=== PATIENT | female | born 1935 | race African-American/Black ===

== ENCOUNTER 2017-06-04 07:57 | Observation (INO) | payer OTHER ==
--- NOTE | 2017-06-04 08:12 | ED.PDOC ---
General ED Provider: Dr. LOPEZ BENDER Chief Complaint: Back Pain Stated Complaint: R leg pain; sciatica which I have had before Time Seen by Physician: 08:05 Mode of Arrival: Ambulance Information Source: Patient, EMT Exam Limitations: No limitations Primary Care Provider: GEETA HYDE Nursing and Triage Documentation Reviewed and Agree: Yes Reviewed sepsis parameters & appropriate labs ordered?: Yes (Not applicable) System Inflammatory Response Syndrome: Not Applicable Sepsis Protocol: For patient's 13 years and over: Temp is 96.8 and below OR 101 and greater Pulse >90 BPM Resp >20/minute Acutely Altered Mental Status Are patient's symptoms suggestive of a new infection, such as: -Pneumonia -Skin, Soft Tissue -Endocarditis -UTI -Bone, Joint Infection -Implantable Device -Acute Abdominal Infection -Wound Infection -Meningitis -Blood Stream Catheter Infection -Unknown System Inflammatory Response Syndrome: Not Applicable Review of Systems - Review Of Systems Constitutional: Reports: No symptoms Musculoskeletal: Reports: Back pain (Radiating down to R LE (knee level)) Skin: Reports: No symptoms Neurological: Reports: No symptoms (ROM intact R and L LEs) Endocrine: Reports: No symptoms All Other Systems: Reviewed and Negative Past Medical History - Past Medical History Previously Healthy: Yes Endocrine: Reports: DM 1, DM 2, Hyperthyroid, Dyslipidemia Cardiovascular: Reports: Hypertension, A-Fib Respiratory: Reports: None Hematological: Reports: None Gastrointestinal: Reports: None Genitourinary: Reports: CKD Neuro/Psych: Reports: CVA Musculoskeletal: Reports: Arthritis Cancer: Reports: None Last Menstrual Period: NA Other Pertinent Past Medical History: htn 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 - Surgical History General Surgical History: Reports: Orthopedic, Other - Family History Family History: Reports: Unknown - Social History Smoking Status: Former smoker Hx Substance Use: No Alcohol Screening: None Physical Exam - Physical Exam Appearance: Well-appearing Respiratory: Airway patent, Breath sounds clear, Breath sounds equal Cardiovascular: RRR, Pulses normal GI/: Soft, Nontender Musculoskeletal: Normal strength, ROM intact Skin: Warm, Dry, Normal color Neurological: Sensation intact, Motor intact, Reflexes intact, Alert, Oriented Psychiatric: Affect appropriate, Mood appropriate Physician Notification - Case Discussed Physician Notified: Dr Hyde Time of Notification: 08:20 (Discussed patient hx/tx plan) Physician Notified: Dr Hyde Time of Notification: 12:05 (Intractable LS pain/obs) Critical Care Note - Critical Care Note Total Time (mins): 35 Course - Course Orders, Labs, Meds: Orders Category Date Time Status ADMIT OBSERVATION [PLACE PATIENT OBSERVATION] .TO ADMISSION 06/04/17 12:22 Active MEDSURG (NON-MONITORED BED) Dexamethasone 4 mg/ml Inj [Decadron 4 mg/ml Sdv] MEDS 06/04/17 08:25 Discontinued 12 mg .ROUTE .STK-MED ONE Dexamethasone 4 mg/ml Inj [Decadron 4 mg/ml Sdv] 10 mg MEDS 06/04/17 08:16 Discontinued 0.9 % Sodium Chloride [Sodium Chloride] 50 ml IV ONCE Hydromorphone HCl [Dilaudid 1 mg/ml Syringe] MEDS 06/04/17 09:24 Discontinued 0.5 mg IVP ONCE STA Ketorolac Tromethamine [Toradol] MEDS 06/04/17 08:22 Discontinued 15 mg IVP ONCE STA Ondansetron HCl/Pf [Zofran 4 mg/2 ml] MEDS 06/04/17 09:25 Discontinued 4 mg IVP ONCE STA LUMBAR SPINE, 2 OR 3 VIEWS Stat RADS 06/04/17 10:29 Completed Medications Discontinued Medications Generic Name Dose Route Start Last Admin Trade Name Freq PRN Reason Stop Dose Admin Hydromorphone HCl 0.5 mg 06/04/17 09:24 06/04/17 09:38 Dilaudid 1 Mg/Ml Syringe IVP 06/04/17 09:25 0.5 mg ONCE STA Administration Dexamethasone Sodium Phosphate 52.5 mls @ 75 mls/hr 06/04/17 08:16 06/04/17 08:38 10 mg/ Sodium Chloride IV 06/04/17 08:57 75 mls/hr ONCE STA Administration Ketorolac Tromethamine 15 mg 06/04/17 08:22 06/04/17 08:32 Toradol IVP 06/04/17 08:23 15 mg ONCE STA Administration Ondansetron HCl 4 mg 06/04/17 09:25 06/04/17 09:38 Zofran 4 Mg/2 Ml IVP 06/04/17 09:26 4 mg ONCE STA Administration Vital Signs: Temp Pulse Resp BP Pulse Ox 06/04/17 07:58 97.9 F 84 20 179/95 H 97 Departure - Departure Time of Disposition: 12:42 Disposition: PLACED OBSERVATION Discharge Problem: Lumbar pain with radiation down right leg Condition: Stable Pt referred to PMD for follow-up: Yes (Follow up with primary care on discharge) IPMP verified?: No Allergies/Adverse Reactions: Allergies ampicillin Adverse Reaction (Verified 06/04/17 08:03) furosemide [From Lasix] Adverse Reaction (Verified 06/04/17 11:06) gabapentin [From Neurontin] Adverse Reaction (Verified 06/04/17 11:06) hydrocodone bitartrate [From Vicodin] Adverse Reaction (Verified 06/04/17 08:03) Home Medications: Ambulatory Orders Aspirin [Aspir-Low] 81 mg PO DAILY 06/04/17 Atorvastatin Calcium [Lipitor] 20 mg PO DAILY 06/04/17 Cinacalcet HCl [Sensipar] 30 mg PO DAILY 06/04/17 Furosemide [Lasix] 40 mg PO DAILY 06/04/17 Hydralazine HCl 100 mg PO DAILY 06/04/17 Levothyroxine Sodium [Synthroid] 50 mcg PO QDAC 06/04/17 Nifedipine [Procardia Xl] 60 mg PO BID 06/04/17 Olmesartan Medoxomil [Benicar] 40 mg PO DAILY 06/04/17 Ondansetron HCl [Zofran] 4 mg PO BID PRN 06/04/17 Propafenone HCl 150 mg PO BID 06/04/17 Disposition Discussed With: Patient
[2017-06-04] MEDS ORDERED: DECADRON 4 MG/ML SDV 10 MG in SODIUM CHLORIDE 50 ML IV STA (08:16)
[2017-06-04] MEDS ORDERED: TORADOL IVP STA (08:22)
[2017-06-04] MEDS ORDERED: DECADRON 4 MG/ML SDV ONE (08:25)
[2017-06-04] MEDS ORDERED: DILAUDID 1 MG/ML SYRINGE IVP STA (09:24)
[2017-06-04] MEDS ORDERED: ZOFRAN 4 MG/2 ML IVP STA (09:25)
--- NOTE | 2017-06-04 12:14 | DI ---
EXAM: Three views of the lumbar spine HISTORY: Lower back pain with no injury. COMPARISON: The lumbar spine 07/09/2015 and 02/09/2011 FINDINGS: There is no acute compression fracture with minimal superior endplate deformity at L4. The re are scattered anterior disc osteophytes and moderate facet arthropathy. Lumbosacral junction is i ntact and unchanged. There is atherosclerotic disease of the visualized vessels. IMPRESSION: 1. No acute compression fracture or subluxation. 2. Mild scattered degenerative disease of the lumbosacral spine which has mildly worsened since prio r examination.
[2017-06-04] MEDS ORDERED: SODIUM CHLORIDE 1,000 ML IV SCH (13:00)
[2017-06-04] MEDS ORDERED: CINACALCET HCL 30 MG PO SCH (14:00)
[2017-06-04 15:20] VITALS: BMI 25.4
[2017-06-04] MEDS: NON-FORMULARY MEDICATION (Atorvastatin Calcium [Lipitor] 20 MG) PO SCH (18:44)
[2017-06-04] MEDS: CINACALCET HCL 90 MG PO SCH (18:45)
[2017-06-04] MEDS: FUROSEMIDE 40 MG PO SCH (18:45)
[2017-06-04] MEDS: LEVOTHYROXINE SODIUM 50 MCG PO SCH (18:47)
[2017-06-04] MEDS: NON-FORMULARY MEDICATION (Olmesartan Medoxomil [Benicar] 40 MG) PO SCH (18:48)
[2017-06-04] MEDS: NON-FORMULARY MEDICATION (Hydralazine Hcl [Hydralazine Hcl] 100 MG) PO SCH (18:50)
[2017-06-04] MEDS ORDERED: DILAUDID 1 MG/ML SYRINGE IVP PRN (19:45)
[2017-06-04] MEDS ORDERED: MEDROL DOSEPAK PO SCH (20:00)
[2017-06-04] MEDS: TORADOL IVP SCH (20:30)
[2017-06-04] MEDS: NIFEDIPINE 60 MG PO SCH (20:30)
[2017-06-04] MEDS: CALCIUM ACETATE PO SCH (20:30)
[2017-06-04] MEDS: PROPAFENONE HCL 150 MG PO SCH (20:31)
[2017-06-04 23:00] VITALS: TEMP 97.5
[2017-06-05] MEDS: TORADOL IVP SCH (04:21)
[2017-06-05 06:22] VITALS: BP 163/81
[2017-06-05] MEDS ORDERED: ASPIRIN 81 MG PO SCH (08:00)
[2017-06-05] MEDS: NON-FORMULARY MEDICATION (Atorvastatin Calcium [Lipitor] 20 MG) PO SCH (08:28)
[2017-06-05] MEDS: CALCIUM ACETATE PO SCH (08:28)
[2017-06-05] MEDS: CINACALCET HCL 90 MG PO SCH (08:29)
[2017-06-05] MEDS: PROPAFENONE HCL 150 MG PO SCH (08:29)
[2017-06-05] MEDS: NIFEDIPINE 60 MG PO SCH (08:29)
[2017-06-05] MEDS: LEVOTHYROXINE SODIUM 50 MCG PO SCH (08:29)
[2017-06-05] MEDS: FUROSEMIDE 40 MG PO SCH (08:30)
[2017-06-05] MEDS: NON-FORMULARY MEDICATION (Hydralazine Hcl [Hydralazine Hcl] 100 MG) PO SCH (08:35)
[2017-06-05] MEDS: NON-FORMULARY MEDICATION (Olmesartan Medoxomil [Benicar] 40 MG) PO SCH (08:36)
[2017-06-05] MEDS ORDERED: MEDROL DOSEPAK PO SCH (09:00)
[2017-06-05] MEDS ORDERED: MULTIVITAMIN PO SCH (09:00)
[2017-06-05] MEDS ORDERED: FOLIC ACID PO SCH (09:00)
[2017-06-05] MEDS ORDERED: IRON PO SCH (09:00)
--- NOTE | 2017-06-05 11:54 | PN ---
DATE OF SERVICE: 06/05/17 SUBJECTIVE: The patient was discharged home. She doesn't have any right sciatica pain. On the scale of 1-10 she is saying that it is 1-2. She is up and about in the bathroom walking around without any help. PHYSICAL EXAMINATION: VITAL SIGNS: Temperature 97.5, pulse 76, respiratory rate 18, blood pressure 160 /80 and pulse ox 95%. HEENT: Head normocephalic, atraumatic. Eyes: Extraocular muscles are intact. Pupils are equal, round and reactive to light and accommodation. Ears: No lesions. Nose appeared normal. Throat: No exudate or erythema. NECK: Supple. No JVD, no carotid bruit. No lymphadenopathy or thyromegaly. LUNGS: Clear to auscultation. Percussion note normal. Chest symmetrical. HEART: S1, S2, no S3. No murmurs. No cyanosis or clubbing. No ascites. Pulses: Dorsalis pedis and posterior tibial pulses +1 to +2 both sides. ABDOMEN: Soft. Nontender. Bowel sounds active. No CVA tenderness. No mass felt. EXTREMITIES: No edema. Full range of motion of all extremities, equal. NEUROLOGIC: No focal deficit. Cranial nerves II through XII are grossly intact. No headache, no double vision or headache. SKIN: Not dry. Intact. Turgor - normal. LYMPHATIC: No palpable lymph nodes/no lymphedema. MUSCULOSKELETAL: Normal joints with no swelling. Muscle tone is normal. LABS: Hgb 9.8, hct 29, potassium 5.2. ASSESSMENT: 1. Right sciatica resolved CONDITION: Stable. PLAN: 1. Systolic blood pressure is 163 which is normal for her which fluctuates with hemodialysis. 2. She is scheduled for dialysis. She will discharged home this morning so that she can attend her dialysis session. TIME SPENT: More than 30 minutes. Plan and coordination of the patient's care discussed in the presence of nurse. SANIYA
--- NOTE | 2017-06-05 12:48 | DS ---
DATE OF SERVICE: 06/05/17 FINAL DIAGNOSIS: 1. Right Sciatica DISCHARGE INSTRUCTIONS: Discharge home. Continue home medications as listed on nursing discharge information sheet. An appointment is scheduled with Dr. Leyva/Jo Ann Galicia APRN on June 07 at 1pm. MEDICATIONS AT DISCHARGE: Propafenone 150mg PO twice a day Procardia 60mg PO twice a day Lasix 40mg PO daily Benicar 40mg Po daily Aspirin 81mg PO daily Synthroid 50 mcg PO QDAC Lipitor 20mg PO bedtime Lipitor 20mg PO bedtime Sensipar 90mg PO daily Multivitamin/iron/folic acid one tablet PO daily Calcium one tablet PO three times a day Zofran 4mg PO twice a day PRN Hydralazine 100mg PO daily Medrol Dosepak 4mg PO as directed. NEW PRESCRIPTIONS: Medrol dose pack complete this medication as directed on package. Take with good (steroid) (already dispensed) DIET INSTRUCTIONS: Resume as tolerated ACTIVITY: Resume as tolerated. Use cane at home. Rest. Avoid lifting, pushing, pulling SMOKING: Former smoker DISEASE SPECIFIC EDUCATION: Medication Exercises Rest HOSPITAL COURSE: The patient was treated with Toradol 30mg IV Q 8 hour, steroids pack with 1cc Decadron yesterday. The patient is up and about feeling better. Back exercises discussed with the patient. The patient's cardiovascular status is stable. The patient is going for dialysis. CONDITION: Stable. TIME SPENT: More than 60 minutes. MTDD
--- NOTE | 2017-06-05 12:49 | PN ---
06/04/17: Observation Level 5 06/05/17: D as in discharge MTDD
--- NOTE | 2017-06-05 14:41 | PN ---
DATE OF SERVICE: 06/04/17 SUBJECTIVE: 81 year old black female came to the emergency room with severe sciatica on right side. The patient was given Decadron and IV with Nubain but still her condition didn't improve so she was hospitalized for further treatment and pain control. The patient is on Dialysis so the patient was hospitalized on observation. She will be discharged tomorrow before the dialysis. 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 The patient was seen and examined in the emergency room as well as on the floor. CONDITION: Stable. TIME SPENT: More than 30 minutes. Plan and coordination of the patient's care discussed in the presence of nurse. SANIYA
== END 2017-06-05 11:54 | disposition home or self-care (01) ==
LOC: ED 07:57 → UNDOADMOB 12:25 → MEDSURG A 12:25
PROVIDERS: ADMIT Internal Medicine; ATTEND Internal Medicine
DX: M54.41 Lumbago with sciatica, right side (principal); M47.897 Other spondylosis, lumbosacral region; Z99.2 Dependence on renal dialysis; Z79.899 Other long term (current) drug therapy
CPT/HCPCS: 36415; 80053; 85025; 96374; 96375; 99217; 99220; 99284

== ENCOUNTER 2018-04-10 16:57 | Emergency (ER) ==
[2018-04-10 17:02] VITALS: BP 188/73; TEMP 98.8; BMI 23.7
--- NOTE | 2018-04-10 17:21 | ED.PDOC ---
General ED Provider: Dr. LATIA DYER Chief Complaint: Shoulder Pain/Injury Stated Complaint: LEFT SHOULDER PAIN Time Seen by Physician: 17:00 (PAIN IS REPRODUCEABLE BY SHOULDER PALPATION NO INJURY) Mode of Arrival: Wheelchair Information Source: Patient Exam Limitations: No limitations Primary Care Provider: GEETA HYDE Nursing and Triage Documentation Reviewed and Agree: Yes (ON DIALYSIS DUE IN AM) Does patient meet sepsis criteria?: No System Inflammatory Response Syndrome: Not Applicable Sepsis Protocol: For patient's 13 years and over: Temp is 96.8 and below OR 101 and greater Pulse >90 BPM Resp >20/minute Acutely Altered Mental Status Are patient's symptoms suggestive of a new infection, such as: -Pneumonia -Skin, Soft Tissue -Endocarditis -UTI -Bone, Joint Infection -Implantable Device -Acute Abdominal Infection -Wound Infection -Meningitis -Blood Stream Catheter Infection -Unknown Review of Systems - Review Of Systems Constitutional: Reports: No symptoms Eyes: Reports: No symptoms Ears, Nose, Mouth, Throat: Reports: No symptoms Respiratory: Reports: No symptoms Cardiac: Reports: No symptoms GI: Reports: No symptoms : Reports: No symptoms Musculoskeletal: Reports: Joint pain (SHOULDER PAIN) Skin: Reports: No symptoms Neurological: Reports: No symptoms Endocrine: Reports: No symptoms Hematologic/Lymphatic: Reports: No symptoms All Other Systems: Reviewed and Negative Past Medical History - Past Medical History Previously Healthy: Yes Endocrine: Reports: DM 1, DM 2, Hyperthyroid, Dyslipidemia Cardiovascular: Reports: Hypertension, A-Fib Respiratory: Reports: None Hematological: Reports: None Gastrointestinal: Reports: None Genitourinary: Reports: CKD Neuro/Psych: Reports: CVA Musculoskeletal: Reports: Arthritis Cancer: Reports: None Last Menstrual Period: none Other Pertinent Past Medical History: htn 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 - Surgical History General Surgical History: Reports: Orthopedic, Other - Family History Family History: Reports: Unknown - Social History Smoking Status: Former smoker Hx Substance Use: No Alcohol Screening: None Physical Exam - Physical Exam Appearance: Well-appearing, No pain distress, Well-nourished Eyes: LUCA, EOMI, Conjunctiva clear ENT: Ears normal, Nose normal, Oropharynx normal Respiratory: Airway patent, Breath sounds clear, Breath sounds equal, Respirations nonlabored Cardiovascular: RRR, Pulses normal, No rub, No murmur GI/: Soft, Nontender, No masses, Bowel sounds normal, No Organomegaly Musculoskeletal: Limited ROM (LEFT SHOULDER PAIN IS REPRODUCEABLE BY PALPATION OF THE ACROMION PROCESS SHOULDER LEFT SIDE ) Skin: Warm, Dry, Normal color Neurological: Sensation intact, Motor intact, Reflexes intact, Cranial nerves intact, Alert, Oriented Psychiatric: Affect appropriate, Mood appropriate Critical Care Note - Critical Care Note Total Time (mins): 0 Course - Course Vital Signs: Temp Pulse Resp BP Pulse Ox 04/10/18 16:57 98.8 F 74 18 188/73 H 95 Departure - Departure Time of Disposition: 18:16 Disposition: HOME SELF-CARE Discharge Problem: Shoulder pain Instructions: Arthralgia (ED), Shoulder Sprain (ED), Shoulder Pain (ED) Condition: Good Pt referred to PMD for follow-up: Yes IPMP verified?: No Additional Instructions: Please call your Family Physician as soon as possible to schedule a follow-up appointment. Allergies/Adverse Reactions: Allergies ampicillin Adverse Reaction (Verified 04/10/18 17:03) furosemide [From Lasix] Adverse Reaction (Verified 04/10/18 17:03) gabapentin [From Neurontin] Adverse Reaction (Verified 04/10/18 17:03) hydrocodone bitartrate [From Vicodin] Adverse Reaction (Verified 04/10/18 17:03) Home Medications: Ambulatory Orders Aspirin [Aspir-Low] 81 mg PO DAILY 06/04/17 Atorvastatin Calcium [Lipitor] 20 mg PO BEDTIME 06/04/17 Calcium Acetate 1 tab PO TID 06/04/17 Cinacalcet HCl [Sensipar] 90 mg PO DAILY 06/04/17 Furosemide [Lasix] 40 mg PO DAILY 06/04/17 Hydralazine HCl 100 mg PO DAILY 06/04/17 Levothyroxine Sodium [Synthroid] 50 mcg PO QDAC 06/04/17 Multivitamin/Iron/Folic Acid [Daily Multiple Tablet] 1 tab PO DAILY 06/04/17 Nifedipine [Procardia Xl] 60 mg PO BID 06/04/17 Olmesartan Medoxomil [Benicar] 40 mg PO DAILY 06/04/17 Ondansetron HCl [Zofran] 4 mg PO BID PRN 06/04/17 Propafenone HCl 150 mg PO BID 06/04/17
[2018-04-10] MEDS ORDERED: NORCO 10-325 PO STA (17:22)
--- NOTE | 2018-04-10 18:07 | CT ---
EXAM: CT of the left shoulder without contrast History: Left shoulder pain. Technique: Multiplanar CT images through the left shoulder were obtained without the administration of IV contrast Findings: The visualized left lung is clear. Partially visualized pacer wires. No acute fracture or dislocation. Sclerosis and cystic change involving superior lateral aspect of t he humeral head. Moderate narrowing of the left AC joint with marginal sclerosis and osteophyte form ation. Mild to moderate narrowing of the left glenohumeral joint with marginal sclerosis and osteoph yte formation. Surrounding soft tissues demonstrate no acute findings. Impression: 1. No acute osseous abnormality. 2. Rotator cuff disease. 3. Arthritis
== END 2018-04-10 18:45 | disposition home or self-care (01) ==
LOC: ED 16:57
DX: M25.512 Pain in left shoulder (principal)
CPT/HCPCS: 99282

== ENCOUNTER 2018-06-01 13:45 | Emergency (ER) ==
[2018-06-01 13:51] VITALS: BMI 24.2
--- NOTE | 2018-06-01 14:43 | CT ---
EXAM: CT THORAX HISTORY: Cough and congestion. TECHNIQUE: CT thorax without intravenous contrast. Multiplanar images presented. COMPARISON: None FINDINGS: Cardiomegaly is present. There is moderately severe atherosclerotic disease including coronary arter ies. Pacemaker unit is noted. Limited evaluation of the mediastinum and hilar structures without th e administration of intravenous contrast agent. No gross mediastinal lymphadenopathy. Small bilateral pleural effusions are present. There is pulmonary vascular congestion and mild centr al interstitial edema. Bibasilar consolidations may represent atelectasis. Cannot exclude mild pneu monia. There is no pneumothorax. 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 Nodular appeari ng thyroid gland is noted. IMPRESSION: 1. Cardiomegaly, pulmonary vascular congestion and mild interstitial edema with small pleural effusi ons. 2. Mild basilar consolidations may represent atelectasis or pneumonia. 3. Atherosclerotic disease. 4. Nodular thyroid gland.
[2018-06-01] MEDS: ZOFRAN 4 MG/2 ML IVP STA (15:09)
[2018-06-01] MEDS: DUONEB NEB STA (15:10)
--- NOTE | 2018-06-01 15:14 | ED.PDOC ---
General ED Provider: Dr. JAIR CHINCHILLA Chief Complaint: Hip Pain/Injury Stated Complaint: Fell while getting into bed yesterday. Landed on the left hip yesterday was on the ground for 2 hours. Has not been able to bear weight. She did not go to her scheuduled dialysis today. Son has helped her in and out of bed. Time Seen by Physician: 15:12 Mode of Arrival: Wheelchair Information Source: Patient, Family Exam Limitations: No limitations Primary Care Provider: GEETA HYDE Nursing and Triage Documentation Reviewed and Agree: No Does patient meet sepsis criteria?: Yes If yes, has appropriate treatment been initiated?: No (due to patient being on dialysis. ) System Inflammatory Response Syndrome: Temp 101F or Greater Sepsis Protocol: For patient's 13 years and over: Temp is 96.8 and below OR 101 and greater Pulse >90 BPM Resp >20/minute Acutely Altered Mental Status Are patient's symptoms suggestive of a new infection, such as: -Pneumonia -Skin, Soft Tissue -Endocarditis -UTI -Bone, Joint Infection -Implantable Device -Acute Abdominal Infection -Wound Infection -Meningitis -Blood Stream Catheter Infection -Unknown Musculoskeletal Complaint Exam - Hip/Pelvis Complaint/Exam Location of Pain: Reports: Left Mechanism of Injury: Reports: Trauma (fall out of bed last night ) Onset/Duration: 1 days Symptoms Are: Still present Initial Severity: Severe Current Severity: Severe Location: Reports: Diffuse Character: Reports: Aching, Throbbing Aggravating: Reports: Movement Associated Signs and Symptoms: Reports: Swelling Septic Arthritis Risk Factors: Reports: None Related Surgical History: Reports: None Hip/Pelvis Findings: Absent: Extremity shortened, Swelling, Ecchymosis, Erythema , Warmth, Blisters Tenderness: Present: Left, Pubis NV Bundle Intact Distal to Injury: No Differential Diagnoses: Fracture, Sprain, Strain, Tenosynovitis Review of Systems - Review Of Systems Constitutional: Reports: Fever Eyes: Reports: No symptoms Ears, Nose, Mouth, Throat: Reports: No symptoms Respiratory: Reports: Cough (loss ), Wheezing Cardiac: Reports: No symptoms GI: Reports: No symptoms : Reports: No symptoms Musculoskeletal: Reports: Joint pain (Left hip ) Skin: Reports: No symptoms Neurological: Reports: Anxiety Endocrine: Reports: No symptoms Hematologic/Lymphatic: Reports: No symptoms All Other Systems: Reviewed and Negative Past Medical History - Past Medical History Previously Healthy: Yes Endocrine: Reports: DM 1, DM 2, Hyperthyroid, Dyslipidemia Cardiovascular: Reports: Hypertension, A-Fib Respiratory: Reports: None Hematological: Reports: None Gastrointestinal: Reports: None Genitourinary: Reports: CKD Neuro/Psych: Reports: CVA Musculoskeletal: Reports: Arthritis Cancer: Reports: None Last Menstrual Period: menopause Other Pertinent Past Medical History: htn 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 - Surgical History General Surgical History: Reports: Orthopedic, Other - Family History Family History: Reports: Unknown - Social History Smoking Status: Former smoker Hx Substance Use: No Alcohol Screening: None Physical Exam - Physical Exam Appearance: Ill-appearing Pain Distress: Severe Eyes: LUCA, EOMI, Conjunctiva clear ENT: Nose normal, Oropharynx normal Neck: Supple Respiratory: Airway patent, Breath sounds clear, Breath sounds equal, Respirations nonlabored Cardiovascular: RRR, Pulses normal, Murmur ([place] grade 5/6) GI/: Soft, Nontender, No masses, Bowel sounds normal, No Organomegaly Musculoskeletal: Normal strength, ROM intact, No edema, No calf tenderness Skin: Warm, Dry, Normal color Neurological: Sensation intact, Motor intact, Cranial nerves intact, Alert, Oriented Psychiatric: Anxious Interpretation - Radiology Interpretation Radiology Interpretation By: Radiologist Radiology Results: Positive (possible pneumoina) Exam Interpreted: CT Scan - EKG Interpretation Time of EKG #1: 14:45 Rate: Normal Rhythm: Sinus Ectopy: PVCs (occasional ) [place]: Left ST Segment: Normal Interpretation: old inferior infact, Qt 517 Re-Evaluation - Re-Evaluation Time of Re-Evaluation: 16:02 Status: Improved Vital Signs Stable: Yes Pain Level: much improved on the left hip Lungs: Other (less wheezign) Physician Notification - Case Discussed Physician Notified: Dr Medina Time of Notification: 16:00 (Accepted for transfer to [facility]. ) Critical Care Note - Critical Care Note Total Time (mins): 45 Course - Course Hematology/Chemistry: 06/01/18 14:33 06/01/18 14:33 Orders, Labs, Meds: Lab Review 06/01/18 06/01/18 06/01/18 14:05 14:33 14:33 WBC 7.30 RBC 2.62 L Hgb 7.5 L Hct 23.3 L MCV 88.9 MCH 28.6 MCHC 32.2 RDW Coeff of Srikanth 17.8 H Plt Count 170 Immature Gran % (Auto) 0.3 Neut % (Auto) 76.7 Lymph % (Auto) 12.2 [place] % (Auto) 10.3 H Eos % (Auto) 0.1 Baso % (Auto) 0.4 Immature Gran # (Auto) 0.0 Neut # (Auto) 5.6 Lymph # (Auto) 0.9 [place] # (Auto) 0.8 Eos # (Auto) 0.0 Baso # (Auto) 0.0 Puncture Site O2 Saturation ABG pH ABG pCO2 ABG pO2 ABG HCO3 ABG Total CO2 ABG Base Excess Adam Test FiO2 % Sodium 138.3 Potassium 4.65 Chloride 94.6 L Carbon Dioxide 29.0 Anion Gap 19.35 BUN 44.9 H Creatinine 8.24 H* Estimated GFR (MDRD) 6.00 BUN/Creatinine Ratio 5.44 Glucose 100.2 Lactic Acid Calcium 8.67 Total Bilirubin 0.39 AST 30.3 ALT 11.9 Alkaline Phosphatase 67.4 Total Creatine Kinase CK-MB (CK-2) CK-MB (CK-2) % Troponin I 0.866 H* Total Protein 7.13 Albumin 3.84 Globulin 3.29 Albumin/Globulin Ratio 1.16 Procalcitonin Influ A Molecular Assay Positive by naat H Influ B Molecular Assay Negative by naat Blood Type 06/01/18 06/01/18 06/01/18 14:33 14:33 14:33 WBC RBC Hgb Hct MCV MCH MCHC RDW Coeff of Srikanth Plt Count Immature Gran % (Auto) Neut % (Auto) Lymph % (Auto) [place] % (Auto) Eos % (Auto) Baso % (Auto) Immature Gran # (Auto) Neut # (Auto) Lymph # (Auto) [place] # (Auto) Eos # (Auto) Baso # (Auto) Puncture Site O2 Saturation ABG pH ABG pCO2 ABG pO2 ABG HCO3 ABG Total CO2 ABG Base Excess Adam Test FiO2 % Sodium Potassium Chloride Carbon Dioxide Anion Gap BUN Creatinine Estimated GFR (MDRD) BUN/Creatinine Ratio Glucose Lactic Acid 1.15 Calcium Total Bilirubin AST ALT Alkaline Phosphatase Total Creatine Kinase 187.8 H CK-MB (CK-2) 1.730 CK-MB (CK-2) % 0.9200 Troponin I Total Protein Albumin Globulin Albumin/Globulin Ratio Procalcitonin 2.24 Influ A Molecular Assay Influ B Molecular Assay Blood Type 06/01/18 06/01/18 14:33 14:44 WBC RBC Hgb Hct MCV MCH MCHC RDW Coeff of Srikanth Plt Count Immature Gran % (Auto) Neut % (Auto) Lymph % (Auto) [place] % (Auto) Eos % (Auto) Baso % (Auto) Immature Gran # (Auto) Neut # (Auto) Lymph # (Auto) [place] # (Auto) Eos # (Auto) Baso # (Auto) Puncture Site Rr O2 Saturation 90.0 L ABG pH 7.517 H* ABG pCO2 33.6 L ABG pO2 52.0 L* ABG HCO3 27.2 H ABG Total CO2 28 ABG Base Excess 4 H Adam Test + FiO2 % 21.0 Sodium Potassium Chloride Carbon Dioxide Anion Gap BUN Creatinine Estimated GFR (MDRD) BUN/Creatinine Ratio Glucose Lactic Acid Calcium Total Bilirubin AST ALT Alkaline Phosphatase Total Creatine Kinase CK-MB (CK-2) CK-MB (CK-2) % Troponin I Total Protein Albumin Globulin Albumin/Globulin Ratio Procalcitonin Influ A Molecular Assay Influ B Molecular Assay Blood Type A POSITIVE Orders Category Date Time Status ABG DRAW REQUEST Routine CARDIO 06/01/18 14:44 Completed EKG-(ED ONLY) Stat CARDIO 06/01/18 14:34 Completed NEBULIZER TREATMENT Stat CARDIO 06/01/18 14:44 Completed ED APPLY O2 .ONCE EMERGENCY 06/01/18 14:09 Active ED VITAL SIGNS Q1HR EMERGENCY 06/01/18 14:09 Active ABG Stat LAB 06/01/18 14:44 Completed BLOOD CULTURE (ED ONLY) Stat LAB 06/01/18 14:33 Received CBC W/ AUTO DIFF Stat LAB 06/01/18 14:33 Completed CK [CREATINE KINASE] Stat LAB 06/01/18 14:33 Completed COMPREHENSIVE METABOLIC PANEL Stat LAB 06/01/18 14:33 Completed FLU A/B MOLECULAR Stat LAB 06/01/18 14:05 Completed LACTIC ACID Stat LAB 06/01/18 14:33 Completed PROCALCITONIN Stat LAB 06/01/18 14:33 Completed RAPID STREP SCREEN [MOLECULAR GROUP A STREP] Stat LAB 06/01/18 14:05 Completed TROPONIN I Stat LAB 06/01/18 14:33 Completed URINALYSIS C & S IF INDICATED Stat LAB 06/01/18 14:09 Uncollected Aztreonam [Azactam] MEDS 06/01/18 15:43 Discontinued 1 gm .ROUTE .STK-MED ONE Aztreonam [Azactam] 1 gm MEDS 06/01/18 15:32 Discontinued 0.9 % Sodium Chloride [Sodium Chloride] 50 ml IV ONCE Ipratropium/Albuterol Neb [Duoneb] MEDS 06/01/18 14:44 Discontinued 1 vial NEB ONCE STA Morphine Sulfate [Morphine 2 mg/ml Syringe] MEDS 06/01/18 15:10 Discontinued 2 mg IVP ONCE STA Ondansetron HCl/Pf [Zofran 4 mg/2 ml] MEDS 06/01/18 14:44 Discontinued 4 mg IVP ONCE STA CT ABDOMEN/PELVIS WO CONTRAST Stat RADS 06/01/18 14:[address] CHEST W/O CONTRAST Stat RADS 06/01/18 14:09 Completed Medications Discontinued Medications Generic Name Dose Route Start Last Admin Trade Name Freq PRN Reason Stop Dose Admin Albuterol/Ipratropium 1 vial 06/01/18 14:44 06/01/18 15:10 Duoneb NEB 06/01/18 14:45 1 vial ONCE STA Administration Aztreonam 1 gm/ Sodium 50 mls @ 75 mls/hr 06/01/18 15:32 06/01/18 15:48 Chloride IV 06/01/18 16:11 75 mls/hr ONCE STA Administration Morphine Sulfate 2 mg 06/01/18 15:10 06/01/18 15:21 Morphine 2 Mg/Ml Syringe IVP 06/01/18 15:11 2 mg ONCE STA Administration Ondansetron HCl 4 mg 06/01/18 14:44 06/01/18 15:09 Zofran 4 Mg/2 Ml IVP 06/01/18 14:45 4 mg ONCE STA Administration Vital Signs: Temp Pulse Resp BP Pulse Ox 06/01/18 15:33 181/78 H 06/01/18 15:18 100.8 F H 87 21 212/93 H 100 06/01/18 14:46 83 22 174/85 H 91 L 06/01/18 14:02 91 H 24 202/94 H 88 L 06/01/18 13:45 101.2 F H 87 20 206/97 H 92 L Departure - Departure Time of Disposition: 16:00 Disposition: TSF SHORT-TRM HOSP Discharge Problem: Influenza A Pneumonia Qualifiers: Pneumonia type: due to unspecified organism Laterality: bilateral Lung location : lower lobe of lung Qualified Code(s): J18.1 - Lobar pneumonia, unspecified organism Iron (Fe) deficiency anemia Qualifiers: Iron deficiency anemia type: other iron deficiency Qualified Code(s): D50.8 - Other iron deficiency anemias Condition: Fair Pt referred to PMD for follow-up: Yes IPMP verified?: No Allergies/Adverse Reactions: Allergies ampicillin Adverse Reaction (Verified 06/01/18 13:53) furosemide [From Lasix] Adverse Reaction (Verified 06/01/18 13:53) gabapentin [From Neurontin] Adverse Reaction (Verified 06/01/18 13:53) hydrocodone bitartrate [From Vicodin] Adverse Reaction (Verified 06/01/18 13:53) Home Medications: Ambulatory Orders Aspirin [Aspir-Low] 81 mg PO DAILY 06/04/17 Atorvastatin Calcium [Lipitor] 20 mg PO BEDTIME 06/04/17 Calcium Acetate 1 tab PO TID 06/04/17 Cinacalcet HCl [Sensipar] 90 mg PO DAILY 06/04/17 Furosemide [Lasix] 40 mg PO DAILY 06/04/17 Hydralazine HCl 100 mg PO DAILY 06/04/17 Levothyroxine Sodium [Synthroid] 50 mcg PO QDAC 06/04/17 Multivitamin/Iron/Folic Acid [Daily Multiple Tablet] 1 tab PO DAILY 06/04/17 Nifedipine [Procardia Xl] 60 mg PO BID 06/04/17 Olmesartan Medoxomil [Benicar] 40 mg PO DAILY 06/04/17 Ondansetron HCl [Zofran] 4 mg PO BID PRN 06/04/17 Propafenone HCl 150 mg PO BID 06/04/17
[2018-06-01 15:20] VITALS: TEMP 100.8
[2018-06-01] MEDS: MORPHINE 2 MG/ML SYRINGE IVP STA (15:21)
--- NOTE | 2018-06-01 15:32 | CT ---
EXAM: CT ABDOMEN AND PELVIS HISTORY: Hip pain after fall TECHNIQUE: CT abdomen and pelvis without intravenous contrast. Images were reconstructed using 5 mm section thickness. Reformations were prepared. COMPARISON: 10/29/2014 FINDINGS: Diagnostic limitations exist without including contrast enhanced images. No focal hepatic lesion is identified. Spleen is within normal limits. There appears to be a mass within the gallbladder which could represent a calculus or have other etiology. Similar finding was not seen previously. There is a small amount ascites in the gallbladder fossa extending along the inferior right hepatic lobe. Pancreas is grossly unremarkable. No adrenal mass. The kidneys are relatively atrophic. Multiple v ascular calcifications are seen. There is no aneurysmal caliber of the aorta. No gastric distension. The the appendix is identified and although approaches upper limit normal in diameter has no convincing evidence of acute inflammation. There is scattered colonic diverticulosis . No bowel obstruction is seen. The uterus has at least one soft tissue mass measuring about 2.6 cm consistent with a fibroid. There is low attenuation within the endometrial canal which appears thic kened possibly related to fluid distension or thickened endometrium. Urinary bladder is within agustín l limits. There is no pelvic ascites. There is a fatty umbilical hernia with a transverse neck level proximally 2.5 cm similar to that prev iously seen. Bones reveal severe degenerative disc and facet disease of the spine and transitional v ertebral body anatomy at the lumbosacral junction. The bones appear demineralized. There is no evid ence of an acute fracture. The lung bases reveal small pleural effusions with adjacent consolidation s. Cardiomegaly is noted. There is no pneumoperitoneum. IMPRESSION: 1. No fracture is identified. 2. There is a mass within the gallbladder which may represent a calculus. Small amount of gallbladd er fossa ascites extending along the inferior liver. Correlate clinically for cholecystitis. Consid er right upper quadrant ultrasound. 3. Prominent appendiceal diameter without convincing evidence of inflammation. 4. Colonic diverticulosis. 5. Vascular calcifications. 6. Fibroid uterus. Cannot exclude endometrial thickening or fluid. Consider follow-up pelvic ultra sound. 7. Small pleural effusions with adjacent atelectasis or pneumonia. Cardiomegaly. 8. Fatty umbilical hernia appears stable.
[2018-06-01] MEDS: AZACTAM 1 GM in SODIUM CHLORIDE 50 ML IV STA (15:48)
[2018-06-01] MEDS: AZACTAM ONE (15:59)
[2018-06-01 16:20] VITALS: BP 169/71
== END 2018-06-01 16:48 | disposition short-term general hospital (02) ==
LOC: ED 13:45
DX: M25.552 Pain in left hip (principal); R60.9 Edema, unspecified; R50.9 Fever, unspecified; R05 Cough; R06.2 Wheezing; F41.9 Anxiety disorder, unspecified; J11.1 Influenza due to unidentified influenza virus with other respiratory manifestations; J18.1 Lobar pneumonia, unspecified organism; D50.8 Other iron deficiency anemias
CPT/HCPCS: 36415; 80053; 82550; 82553; 82803; 83605; 84145; 84484; 85025; 87040; 87502; 87651; 93005; 93010; 94640; 96365; 96375; 99284; 99285

== ENCOUNTER 2018-08-19 14:34 | Emergency (ER) ==
[2018-08-19 14:43] VITALS: BP 171/71; TEMP 97.9; BMI 23.3
--- NOTE | 2018-08-19 19:20 | ED.PDOC ---
General ED Provider: Dr. JAIR CHINCHILLA Chief Complaint: Shoulder Pain/Injury Stated Complaint: Miryameinmacie is an 82 year old female who comes to the ER with increased pain to left shoulder and neck area especially when trying to raise her left arm. She reports prior Left rotator cuff injury, believes may be a flare up. Denies any new injury. Time Seen by Physician: 19:20 Mode of Arrival: Wheelchair Information Source: Patient Primary Care Provider: GEETA HYDE Nursing and Triage Documentation Reviewed and Agree: Yes Does patient meet sepsis criteria?: No System Inflammatory Response Syndrome: Not Applicable Sepsis Protocol: For patient's 13 years and over: Temp is 96.8 and below OR 101 and greater Pulse >90 BPM Resp >20/minute Acutely Altered Mental Status Are patient's symptoms suggestive of a new infection, such as: -Pneumonia -Skin, Soft Tissue -Endocarditis -UTI -Bone, Joint Infection -Implantable Device -Acute Abdominal Infection -Wound Infection -Meningitis -Blood Stream Catheter Infection -Unknown Review of Systems - Review Of Systems Constitutional: Reports: No symptoms Eyes: Reports: No symptoms Ears, Nose, Mouth, Throat: Reports: No symptoms Respiratory: Reports: No symptoms Cardiac: Reports: No symptoms GI: Reports: No symptoms : Reports: No symptoms Musculoskeletal: Reports: Joint pain (Limited range of motion to abduction. ) Skin: Reports: No symptoms Neurological: Reports: Anxiety Endocrine: Reports: No symptoms Hematologic/Lymphatic: Reports: No symptoms All Other Systems: Reviewed and Negative Past Medical History - Past Medical History Previously Healthy: Yes Endocrine: Reports: DM 1, DM 2, Hyperthyroid, Dyslipidemia Cardiovascular: Reports: Hypertension, A-Fib Respiratory: Reports: None Hematological: Reports: None Gastrointestinal: Reports: None Genitourinary: Reports: CKD Neuro/Psych: Reports: CVA Musculoskeletal: Reports: Arthritis Cancer: Reports: None Last Menstrual Period: na Other Pertinent Past Medical History: htn 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 - Surgical History General Surgical History: Reports: Orthopedic, Other - Family History Family History: Reports: Unknown - Social History Smoking Status: Former smoker Hx Substance Use: No Alcohol Screening: None - Immunizations Tetanus Shot up to Date: No Physical Exam - Physical Exam Appearance: Well-appearing, Well-nourished Pain Distress: Severe Eyes: EOMI, Conjunctiva clear ENT: Oropharynx normal Neck: Supple Respiratory: Airway patent, Breath sounds clear, Breath sounds equal, Respirations nonlabored Cardiovascular: RRR, Pulses normal, No rub, No murmur GI/: Soft, Nontender, No masses, Bowel sounds normal, No Organomegaly Musculoskeletal: Limited ROM (on the left shoulder ) Skin: Warm, Dry Neurological: Sensation intact Psychiatric: Affect appropriate, Mood appropriate Re-Evaluation - Re-Evaluation Time of Re-Evaluation: 19:30 Status: Improved Pain Level: Pain almost gone Critical Care Note - Critical Care Note Total Time (mins): 0 Course - Course Orders, Labs, Meds: Orders Category Date Time Status Acetaminophen [Tylenol] MEDS 08/19/18 19:25 Discontinued 1,000 mg PO ONCE STA Dexamethasone 4 mg/ml Inj [Decadron 4 mg/ml Sdv] MEDS 08/19/18 19:25 Discontinued 8 mg IM ONCE STA Medications Discontinued Medications Generic Name Dose Route Start Last Admin Trade Name Freq PRN Reason Stop Dose Admin Acetaminophen 1,000 mg 08/19/18 19:25 08/19/18 19:50 Tylenol PO 08/19/18 19:26 1,000 mg ONCE STA Administration Dexamethasone Sodium Phosphate 8 mg 08/19/18 19:25 08/19/18 19:50 Decadron 4 Mg/Ml Sdv IM 08/19/18 19:26 8 mg ONCE STA Administration Vital Signs: Temp Pulse Resp BP Pulse Ox 08/19/18 14:34 97.9 F 70 22 171/71 H 70 L Departure - Departure Time of Disposition: 19:40 Disposition: HOME SELF-CARE Discharge Problem: Shoulder pain Instructions: Shoulder Sprain (ED) Condition: Fair Pt referred to PMD for follow-up: Yes IPMP verified?: No Additional Instructions: Take Tylenol 500mg every 6 hours as needed for pain continue home Tramadol as needed for severe pain Allergies/Adverse Reactions: Allergies ampicillin Adverse Reaction (Verified 08/19/18 17:56) furosemide [From Lasix] Adverse Reaction (Verified 08/19/18 17:56) gabapentin [From Neurontin] Adverse Reaction (Verified 08/19/18 17:56) hydrocodone bitartrate [From Vicodin] Adverse Reaction (Verified 08/19/18 17:56) Home Medications: Ambulatory Orders Aspirin [Aspir-Low] 81 mg PO DAILY 06/04/17 Atorvastatin Calcium [Lipitor] 20 mg PO BEDTIME 06/04/17 Calcium Acetate 1 tab PO TID 06/04/17 Cinacalcet HCl [Sensipar] 90 mg PO DAILY 06/04/17 Hydralazine HCl 100 mg PO DAILY 06/04/17 Levothyroxine Sodium [Synthroid] 50 mcg PO QDAC 06/04/17 Multivitamin/Iron/Folic Acid [Daily Multiple Tablet] 1 tab PO DAILY 06/04/17 Nifedipine [Procardia Xl] 60 mg PO BID 06/04/17 Olmesartan Medoxomil [Benicar] 40 mg PO DAILY 06/04/17 Ondansetron HCl [Zofran] 4 mg PO BID PRN 06/04/17 Propafenone HCl 150 mg PO BID 06/04/17 Tramadol HCl [Ultram] 50 mg PO TID 08/19/18 Disposition Discussed With: Patient, Family
[2018-08-19] MEDS: TYLENOL PO STA (19:50)
[2018-08-19] MEDS: DECADRON 4 MG/ML SDV IM STA (19:50)
== END 2018-08-19 20:19 | disposition home or self-care (01) ==
LOC: ED 14:34
DX: M25.512 Pain in left shoulder (principal); M54.2 Cervicalgia
CPT/HCPCS: 96372; 99282

== ENCOUNTER 2018-08-23 14:08 | Emergency (ER) | payer OTHER ==
[2018-08-23 14:15] VITALS: BP 186/87; TEMP 97.1; BMI 10.9
--- NOTE | 2018-08-23 14:39 | ED.PDOC ---
General ED Provider: Dr. ESPERANZA GARCIA Chief Complaint: Weakness Stated Complaint: 82 y old with an apparent weaknes of left shoulder,left sided vision/apparently due to EOM weakness-peripheral gaze strain/ and very subtle weakness in left facial n medial distribution.Speech is not slurred and suctioning with mouth-lips is normal so are tongue movements. Standing posture is weakened by left hip-weakening to maintain stance.No fasciculations.Sensation to fine needle point touch is dcreased or abolished in left shoulder arm above elbow.-aligned with a loss of motor control in the same region.Ventricular pacemaker senses,fires and captures normally, Time Seen by Physician: 14:25 Mode of Arrival: Walk-In Information Source: Patient, Family Exam Limitations: No limitations Primary Care Provider: GEETA HYDE Nursing and Triage Documentation Reviewed and Agree: Yes Does patient meet sepsis criteria?: No System Inflammatory Response Syndrome: Not Applicable Sepsis Protocol: For patient's 13 years and over: Temp is 96.8 and below OR 101 and greater Pulse >90 BPM Resp >20/minute Acutely Altered Mental Status Are patient's symptoms suggestive of a new infection, such as: -Pneumonia -Skin, Soft Tissue -Endocarditis -UTI -Bone, Joint Infection -Implantable Device -Acute Abdominal Infection -Wound Infection -Meningitis -Blood Stream Catheter Infection -Unknown Neurological Complaint Exam - Weakness Complaint/Exam Last Known Well: ay before dialysis/apparently/. Onset: Sudden Duration: two days Symptoms Are: Still present Timing: Constant Episodes Lasting: Days Initial Severity: Mild Current Severity: Mild Aggravating: Reports: None Alleviating: Reports: Rest, Lying down Associated Signs and Symptoms: Reports: Visual changes Cardiac Risk Factors: Reports: Hypertension, CAD CVA Risk Factors: Reports: Hypertension, CAD JVD Present: No Carotid Bruit Present: No Nystagmus Present: No Gag Reflex Present: Yes Meningeal Signs Positive: No Focal Weakness: Present: LUE, Left facial Gait: Unsteady, Unable Ychapt-no-Onua: Abnormal left Romberg Test Positive: No (not tested due to the condition) Differential Diagnoses: Medication reaction, Metabolic abnormalities Quality Indicator For Non-Traumatic Chest Pain/Syncope: EKG Performed Review of Systems - Review Of Systems Constitutional: Reports: Weakness, Loss of appetite Eyes: Reports: Vision change Ears, Nose, Mouth, Throat: Reports: No symptoms Respiratory: Reports: No symptoms Cardiac: Reports: No symptoms GI: Reports: No symptoms : Reports: No symptoms Musculoskeletal: Reports: Other Skin: Reports: No symptoms Neurological: Reports: Cognitive dysfunction, Unable to move upper ext, Weakness , Other Endocrine: Reports: No symptoms Hematologic/Lymphatic: Reports: No symptoms All Other Systems: Reviewed and Negative Past Medical History - Past Medical History Previously Healthy: Yes Endocrine: Reports: DM 1, DM 2, Hyperthyroid, Dyslipidemia Cardiovascular: Reports: Hypertension, A-Fib Respiratory: Reports: None Hematological: Reports: None Gastrointestinal: Reports: None Genitourinary: Reports: CKD Neuro/Psych: Reports: CVA Musculoskeletal: Reports: Arthritis Cancer: Reports: None Last Menstrual Period: na Other Pertinent Past Medical History: htn 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 - Surgical History General Surgical History: Reports: Orthopedic, Other - Family History Family History: Reports: Unknown - Social History Smoking Status: Former smoker Hx Substance Use: No Alcohol Screening: None - Immunizations Tetanus Shot up to Date: Yes Physical Exam - Physical Exam Appearance: Ill-appearing, No pain distress, Thin Ill-appearing: Mild Pain Distress: None Eyes: LUCA, Conjunctiva clear ENT: Ears normal, Nose normal, Oropharynx normal Neck: Supple Respiratory: Airway patent, Breath sounds clear Cardiovascular: RRR, Pulses normal GI/: Soft, Nontender Musculoskeletal: Normal strength Skin: Dry Psychiatric: Affect appropriate Physician Notification - Case Discussed Physician Notified: Consulted with -nephr,Continue dialysis as scheduled Time of Notification: 16:47 Critical Care Note - Critical Care Note Total Time (mins): 0 Course - Course Hematology/Chemistry: 08/23/18 15:11 08/23/18 15:11 Orders, Labs, Meds: Lab Review 08/23/18 08/23/18 15:11 15:11 WBC 6.03 RBC 3.91 L Hgb 11.2 L Hct 33.7 L MCV 86.2 MCH 28.6 MCHC 33.2 RDW Coeff of Srikanth 15.1 H Plt Count 260 Immature Gran % (Auto) 0.3 Neut % (Auto) 60.6 Lymph % (Auto) 23.7 [place] % (Auto) 11.6 H Eos % (Auto) 2.8 Baso % (Auto) 1.0 Immature Gran # (Auto) 0.0 Neut # (Auto) 3.7 Lymph # (Auto) 1.4 [place] # (Auto) 0.7 Eos # (Auto) 0.2 Baso # (Auto) 0.1 Sodium 136.4 Potassium 4.10 Chloride 97.0 L Carbon Dioxide 26.7 Anion Gap 16.80 BUN 30.8 H Creatinine 7.30 H* Estimated GFR (MDRD) 6.00 BUN/Creatinine Ratio 4.21 Glucose 77.5 Calcium 7.78 L Total Bilirubin 0.48 AST 25.1 ALT 6.9 Alkaline Phosphatase 83.0 Total Protein 7.54 Albumin 4.21 Globulin 3.33 Albumin/Globulin Ratio 1.26 Orders Category Date Time Status EKG-(ED ONLY) Stat CARDIO 08/23/18 14:44 Completed CBC W/ AUTO DIFF Stat LAB 08/23/18 15:11 Completed COMPREHENSIVE METABOLIC PANEL Stat LAB 08/23/18 15:11 Completed URINALYSIS C & S IF INDICATED Stat LAB 08/23/18 14:[address] HEAD W/O CONTRAST Stat RADS 08/23/18 14:40 Completed Vital Signs: Temp Pulse Resp BP Pulse Ox 08/23/18 14:10 97.1 F L 79 16 186/87 H 97 Departure - Departure Time of Disposition: 16:48 Disposition: HOME SELF-CARE Discharge Problem: Dialysis disequilibrium syndrome Instructions: Peripheral Neuropathy (ED) Condition: Fair Pt referred to PMD for follow-up: Yes (follow with nephrology regarding extent of dialysis) IPMP verified?: Yes Additional Instructions: Current dialysis freq 3xweek Allergies/Adverse Reactions: Allergies ampicillin Adverse Reaction (Verified 08/23/18 15:01) furosemide [From Lasix] Adverse Reaction (Verified 08/23/18 15:01) gabapentin [From Neurontin] Adverse Reaction (Verified 08/23/18 15:01) hydrocodone bitartrate [From Vicodin] Adverse Reaction (Verified 08/23/18 15:01) Home Medications: Ambulatory Orders Aspirin [Aspir-Low] 81 mg PO DAILY 06/04/17 Atorvastatin Calcium [Lipitor] 20 mg PO BEDTIME 06/04/17 Calcium Acetate 1 tab PO TID 06/04/17 Cinacalcet HCl [Sensipar] 90 mg PO DAILY 06/04/17 Hydralazine HCl 100 mg PO DAILY 06/04/17 Levothyroxine Sodium [Synthroid] 50 mcg PO QDAC 06/04/17 Multivitamin/Iron/Folic Acid [Daily Multiple Tablet] 1 tab PO DAILY 06/04/17 Nifedipine [Procardia Xl] 60 mg PO BID 06/04/17 Olmesartan Medoxomil [Benicar] 40 mg PO DAILY 06/04/17 Ondansetron HCl [Zofran] 4 mg PO BID PRN 06/04/17 Propafenone HCl 150 mg PO BID 06/04/17 Tramadol HCl [Ultram] 50 mg PO TID 08/19/18 Disposition Discussed With: Patient, Family
--- NOTE | 2018-08-23 15:42 | CT ---
EXAM: CT Head HISTORY: Post dialysis observed left body/facial weakness COMPARISON: None TECHNIQUE: CT head performed without contrast FINDINGS: There is no mass effect, midline shift, or intracranial hemmorhage. Jolly white differenti ation is preserved. There is no extra-axial collection. The ventricles, sulci, and basal cisterns a re patent and symmetric. 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 Cerebral volume lo ss. There is no depressed calvarial fracture. The mastoid air cells are clear. The visualized paran celeste sinuses are clear. There are intracranial atherosclerotic calcifications. IMPRESSION: 1. No acute intracranial abnormality. Consider MRI if there is clinical concern for acute ischemia. 2. 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 Cerebral volume loss.
== END 2018-08-23 18:57 | disposition short-term general hospital (02) ==
LOC: ED 14:08
DX: R53.1 Weakness (principal); H53.9 Unspecified visual disturbance; R63.0 Anorexia; E87.8 Other disorders of electrolyte and fluid balance, not elsewhere classified
CPT/HCPCS: 36415; 80053; 85025; 93005; 93010; 99283; 99284

== ENCOUNTER 2018-08-23 18:58 | Outpatient (CLI) | payer OTHER ==
[2018-08-23 14:15] VITALS: BMI 10.9
== END 2018-08-23 19:18 | disposition short-term general hospital (02) ==
LOC: AMBL 18:58
PROVIDERS: ATTEND Emergency Medicine
DX: R53.1 Weakness (principal); N18.9 Chronic kidney disease, unspecified; Z99.2 Dependence on renal dialysis

== ENCOUNTER 2018-09-21 13:11 | Emergency (ER) | payer OTHER ==
[2018-09-21 13:25] VITALS: BP 137/65; TEMP 97.4; BMI 22.6
--- NOTE | 2018-09-21 14:54 | ED.PDOC ---
General ED Provider: Dr. COLIN ADHIKARI Chief Complaint: Nausea/Vomiting Stated Complaint: Became sick upon arrival home from dialysis. One episode emesis and loose watery diarrhea- dark. Done since this happened earlier this AM Time Seen by Physician: 14:15 Mode of Arrival: Ambulance Information Source: Patient Exam Limitations: No limitations Primary Care Provider: GEETA HYDE Nursing and Triage Documentation Reviewed and Agree: Yes Does patient meet sepsis criteria?: No System Inflammatory Response Syndrome: Not Applicable Sepsis Protocol: For patient's 13 years and over: Temp is 96.8 and below OR 101 and greater Pulse >90 BPM Resp >20/minute Acutely Altered Mental Status Are patient's symptoms suggestive of a new infection, such as: -Pneumonia -Skin, Soft Tissue -Endocarditis -UTI -Bone, Joint Infection -Implantable Device -Acute Abdominal Infection -Wound Infection -Meningitis -Blood Stream Catheter Infection -Unknown GI Complaint Exam - Vomiting/Diarrhea Complaint/Exam Onset/Duration: earlier today Symptoms Are: Resolved Episodes of Vomiting over last 24 Hours: 2 Episodes of Diarrhea Over Last 24 Hours: 1 Initial Severity: Moderate Current Severity: None Character of Vomiting: Reports: Bilious Character of Diarrhea: Reports: Watery (brown ) Aggravating: Reports: None Alleviating: Reports: NPO, Lying still Associated Signs and Symptoms: Reports: Abdominal pain, Cramping. Denies: Dizziness, Light-headedness, Melena, Hematemesis, Fever Related History: Denies: Similar episode, Recent antibiotics Non-GI Risk Factors: Reports: None Surgical Obstruction Risk Factors: Reports: None Related Surgical History: Reports: None Abdominal Findings: Present: None Kussmaul Respirations Present: No Differential Diagnoses: Gastritis, Viral Gastroenteritis Review of Systems - Review Of Systems Constitutional: Reports: No symptoms Eyes: Reports: No symptoms Ears, Nose, Mouth, Throat: Reports: No symptoms Respiratory: Reports: No symptoms Cardiac: Reports: No symptoms GI: Reports: No symptoms, Diarrhea, Nausea, Vomiting : Reports: No symptoms, Other (ckd /dialysis) Musculoskeletal: Reports: No symptoms Skin: Reports: No symptoms Neurological: Reports: No symptoms Endocrine: Reports: No symptoms Hematologic/Lymphatic: Reports: No symptoms All Other Systems: Reviewed and Negative Past Medical History - Past Medical History Previously Healthy: Yes Endocrine: Reports: DM 1, DM 2, Hyperthyroid, Dyslipidemia Cardiovascular: Reports: Hypertension, A-Fib Respiratory: Reports: None Hematological: Reports: None Gastrointestinal: Reports: None Genitourinary: Reports: CKD Neuro/Psych: Reports: CVA Musculoskeletal: Reports: Arthritis Cancer: Reports: None Last Menstrual Period: unknown Other Pertinent Past Medical History: htn 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 - Surgical History General Surgical History: Reports: Orthopedic, Other - Family History Family History: Reports: Unknown - Social History Smoking Status: Former smoker Hx Substance Use: No Alcohol Screening: None Physical Exam - Physical Exam Appearance: Ill-appearing, Thin Ill-appearing: Mild Pain Distress: None Eyes: LUCA, EOMI, Conjunctiva clear ENT: Ears normal, Nose normal, Oropharynx normal Neck: Supple Respiratory: Airway patent, Breath sounds clear, Breath sounds equal, Respirations nonlabored Cardiovascular: RRR, Pulses normal, No rub, No murmur GI/: Soft, Nontender, No masses, Bowel sounds normal, No Organomegaly Musculoskeletal: Normal strength, ROM intact, No edema, No calf tenderness Skin: Warm, Dry, Normal color Neurological: Sensation intact, Motor intact, Reflexes intact, Cranial nerves intact, Alert, Oriented Critical Care Note - Critical Care Note Total Time (mins): 0 Course - Course Hematology/Chemistry: 09/21/18 15:10 09/21/18 15:10 Orders, Labs, Meds: Lab Review 09/21/18 09/21/18 15:10 15:10 WBC 10.12 RBC 3.42 L Hgb 9.9 L Hct 30.0 L MCV 87.7 MCH 28.9 MCHC 33.0 RDW Coeff of Srikanth 14.8 Plt Count 192 Immature Gran % (Auto) 0.3 Neut % (Auto) 81.4 Lymph % (Auto) 10.7 [place] % (Auto) 6.8 Eos % (Auto) 0.5 Baso % (Auto) 0.3 Immature Gran # (Auto) 0.0 Neut # (Auto) 8.2 H Lymph # (Auto) 1.1 [place] # (Auto) 0.7 Eos # (Auto) 0.1 Baso # (Auto) 0.0 Sodium 135.0 Potassium 3.61 Chloride 91.3 L Carbon Dioxide 34.9 H Anion Gap 12.41 BUN 31.6 H Creatinine 3.18 H Estimated GFR (MDRD) 17.00 BUN/Creatinine Ratio 9.93 Glucose 130.8 H Calcium 8.20 L Total Bilirubin 0.43 AST 31.4 ALT 14.7 Alkaline Phosphatase 80.5 Troponin I 0.047 Total Protein 7.00 Albumin 3.81 Globulin 3.19 Albumin/Globulin Ratio 1.19 Orders Category Date Time Status EKG-(ED ONLY) Stat CARDIO 09/21/18 14:53 Completed CBC W/ AUTO DIFF Stat LAB 09/21/18 15:10 Completed CMP [COMPREHENSIVE METABOLIC PANEL] Stat LAB 09/21/18 15:10 Completed TROPONIN I Stat LAB 09/21/18 15:10 Completed Vital Signs: Temp Pulse Resp BP Pulse Ox 09/21/18 13:14 97.4 F L 76 20 137/65 97 Departure - Departure Time of Disposition: 16:15 Disposition: HOME SELF-CARE Discharge Problem: Vomiting and diarrhea, CKD (chronic kidney disease) stage V requiring chronic dialysis Instructions: Gastroenteritis (ED) Condition: Good Pt referred to PMD for follow-up: Yes IPMP verified?: No Additional Instructions: Remain on diet as tolerated Remain well hydrated See PCP in office next week Allergies/Adverse Reactions: Allergies ampicillin Adverse Reaction (Verified 09/21/18 13:25) furosemide [From Lasix] Adverse Reaction (Verified 09/21/18 13:25) gabapentin [From Neurontin] Adverse Reaction (Verified 09/21/18 13:25) hydrocodone bitartrate [From Vicodin] Adverse Reaction (Verified 09/21/18 13:25) Home Medications: Ambulatory Orders Aspirin [Aspir-Low] 81 mg PO DAILY 06/04/17 Atorvastatin Calcium [Lipitor] 20 mg PO BEDTIME 06/04/17 Calcium Acetate 1 tab PO TID 06/04/17 Cinacalcet HCl [Sensipar] 90 mg PO DAILY 06/04/17 Hydralazine HCl 100 mg PO DAILY 06/04/17 Levothyroxine Sodium [Synthroid] 50 mcg PO QDAC 06/04/17 Multivitamin/Iron/Folic Acid [Daily Multiple Tablet] 1 tab PO DAILY 06/04/17 Nifedipine [Procardia Xl] 60 mg PO BID 06/04/17 Olmesartan Medoxomil [Benicar] 40 mg PO DAILY 06/04/17 Ondansetron HCl [Zofran] 4 mg PO BID PRN 06/04/17 Propafenone HCl 150 mg PO BID 06/04/17 Tramadol HCl [Ultram] 50 mg PO TID 05/13/19 Disposition Discussed With: Patient, Family
== END 2018-09-21 17:05 | disposition home or self-care (01) ==
LOC: ED 13:11
DX: R11.2 Nausea with vomiting, unspecified (principal); R19.7 Diarrhea, unspecified; N18.5 Chronic kidney disease, stage 5; Z99.2 Dependence on renal dialysis; Z79.899 Other long term (current) drug therapy; R10.9 Unspecified abdominal pain; E11.9 Type 2 diabetes mellitus without complications; E78.5 Hyperlipidemia, unspecified; E05.90 Thyrotoxicosis, unspecified without thyrotoxic crisis or storm; Z86.73 Personal history of transient ischemic attack (TIA), and cerebral infarction without residual deficits
CPT/HCPCS: 36415; 80053; 84484; 85025; 93005; 93010; 99283

== ENCOUNTER 2018-09-26 18:05 | Emergency (ER) | payer OTHER ==
[2018-09-26 18:11] VITALS: BMI 22.1
[2018-09-26] MEDS ORDERED: ZOFRAN ODT PO STA (19:25)
--- NOTE | 2018-09-26 19:43 | ED.PDOC ---
General ED Provider: Dr. JAIR CHINCHILLA Chief Complaint: Weakness Stated Complaint: Patient is an 82 year old female who states that she had dialysis two days ago and today and on her way home after dialysis she vomited brown emesis. Ambulace was callded due to lower blood pressure in the 90s. family states that there was no blood or coffee ground in her vomit. She denies any complaint at this time except mild Nausea. Family states that she had similar episode 2 days ago. Time Seen by Physician: 19:38 Mode of Arrival: Ambulance Information Source: Patient Exam Limitations: No limitations Primary Care Provider: GEETA HYDE Nursing and Triage Documentation Reviewed and Agree: Yes Does patient meet sepsis criteria?: No System Inflammatory Response Syndrome: Not Applicable Sepsis Protocol: For patient's 13 years and over: Temp is 96.8 and below OR 101 and greater Pulse >90 BPM Resp >20/minute Acutely Altered Mental Status Are patient's symptoms suggestive of a new infection, such as: -Pneumonia -Skin, Soft Tissue -Endocarditis -UTI -Bone, Joint Infection -Implantable Device -Acute Abdominal Infection -Wound Infection -Meningitis -Blood Stream Catheter Infection -Unknown Miscellaneous Complaint Exam - Complex/Multi-System Complaint/Exam Onset/Duration: 1 day Symptoms Are: Resolved Associated Signs and Symptoms: Reports: Weakness, Nausea, Vomiting Respiratory Distress: None JVD Present: No Tachypnea Present: No Stridor Present: No Abdominal Findings: Present: Normal findings Glascow Coma Scale (see protocol): 15 Focal Weakness: Present: None Focal Sensory Loss: Present: None Gait: Normal Gag Reflex Present: Yes Skin Findings: Present: Normal findings Rectal Exam: Present: Heme positive. Absent: External hemorrhoids, Swelling Differential Diagnosis: Other (upper gi Bleed ) Quality Indicator For Non-Traumatic Chest Pain/Syncope: EKG Performed Review of Systems - Review Of Systems Constitutional: Reports: Weakness Eyes: Reports: No symptoms Ears, Nose, Mouth, Throat: Reports: No symptoms Respiratory: Reports: No symptoms GI: Reports: Nausea, Vomiting (brown emesis ) : Reports: No symptoms Musculoskeletal: Reports: No symptoms Skin: Reports: No symptoms Neurological: Reports: No symptoms Endocrine: Reports: No symptoms, Excessive sweating All Other Systems: Reviewed and Negative Past Medical History - Past Medical History Previously Healthy: Yes Endocrine: Reports: DM 1, DM 2, Hyperthyroid, Dyslipidemia Cardiovascular: Reports: Hypertension, A-Fib Respiratory: Reports: None Hematological: Reports: None Gastrointestinal: Reports: None Genitourinary: Reports: CKD Neuro/Psych: Reports: CVA Musculoskeletal: Reports: Arthritis Cancer: Reports: None Last Menstrual Period: n/a Other Pertinent Past Medical History: htn 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 - Surgical History General Surgical History: Reports: Pacemaker, Orthopedic, Other - Family History Family History: Reports: Unknown - Social History Smoking Status: Former smoker Hx Substance Use: No Alcohol Screening: None Physical Exam - Physical Exam Appearance: Ill-appearing Ill-appearing: Moderate Pain Distress: None Eyes: Conjunctiva pale Neck: Supple Respiratory: Airway patent, Breath sounds clear, Breath sounds equal, Respirations nonlabored Cardiovascular: RRR, Pulses normal, No rub, No murmur GI/: Soft, Nontender Musculoskeletal: Normal strength, ROM intact, No edema, No calf tenderness Skin: Warm, Dry Neurological: Alert, Oriented Psychiatric: Anxious Interpretation - Radiology Interpretation Radiology Interpretation By: ED Physician Radiology Results: Negative Exam Interpreted: Portable CXR - EKG Interpretation Time of EKG #1: 19:50 Rate: Normal (70) Rhythm: Other (paced) [place]: Left Interpretation: Dual chamber pacemaker Re-Evaluation - Re-Evaluation Time of Re-Evaluation: 21:37 Status: Improved Vital Signs Stable: Yes (131/50) Physician Notification - Case Discussed Physician Notified: Dr Rucker Time of Notification: 21:33 (Accepted for consult ) Physician Notified: Dr Norris Time of Notification: 21:43 (Accepted for Transfer then called back and Demanded a central line to be placed. Discussed risks of central line to patient and family and they declined even thought at this time she has a 22 gauge IV on the left forarm. ) Consult With: discussed with ER physician at [facility] who has accepted patient for Transf Critical Care Note - Critical Care Note Total Time (mins): 30 Comments: Amy Hospitalist Dr. Norris refused to accept patient for transfer demanding a central line even after patient has peripheral line and refused to consent for central line due to risk of infection Pneumothroax Dr. Wang accepted patient to [facility] ER and requested if we can get another 18 Gu peripheral line SOLAR THER[employer] TECHNICIAN at [facility] Dr Shavon Montague called the hospital at my request and I explained the discussion back and forth as noted on Nursing chart. Told her that because of refusal by Dr Norris I initiated call to [facility] and she has been accepted. Prior to her calling back. Course - Course Hematology/Chemistry: 09/26/18 20:05 09/26/18 20:05 Orders, Labs, Meds: Lab Review 09/26/18 09/26/18 09/26/18 20:05 20:05 20:05 WBC 6.94 RBC 2.45 L Hgb 7.1 L Hct 22.0 L MCV 89.8 MCH 29.0 MCHC 32.3 RDW Coeff of Srikanth 15.7 H Plt Count 178 Immature Gran % (Auto) 0.6 Neut % (Auto) 65.0 Lymph % (Auto) 21.0 Hopkins % (Auto) 11.1 H Eos % (Auto) 1.6 Baso % (Auto) 0.7 Immature Gran # (Auto) 0.0 Neut # (Auto) 4.5 Lymph # (Auto) 1.5 Hopkins # (Auto) 0.8 Eos # (Auto) 0.1 Baso # (Auto) 0.1 PT INR Sodium 134.9 Potassium 3.73 Chloride 93.5 L Carbon Dioxide 35.0 H Anion Gap 10.13 BUN 26.0 H Creatinine 3.14 H Estimated GFR (MDRD) 17.00 BUN/Creatinine Ratio 8.28 Glucose 113.7 H Lactic Acid Calcium 8.15 L Total Bilirubin 0.26 AST 25.0 ALT 13.3 Alkaline Phosphatase 65.9 Troponin I 0.040 Total Protein 6.32 Albumin 3.52 Globulin 2.80 Albumin/Globulin Ratio 1.25 Amylase Lipase Procalcitonin 0.74 Stl Occult Blood (IFOB) Stool Occult Blood #2 Stool Occult Blood #3 09/26/18 09/26/18 09/26/18 20:05 20:05 20:05 WBC RBC Hgb Hct MCV MCH MCHC RDW Coeff of Srikanth Plt Count Immature Gran % (Auto) Neut % (Auto) Lymph % (Auto) Hopkins % (Auto) Eos % (Auto) Baso % (Auto) Immature Gran # (Auto) Neut # (Auto) Lymph # (Auto) Hopkins # (Auto) Eos # (Auto) Baso # (Auto) PT 10.4 INR 1.04 Sodium Potassium Chloride Carbon Dioxide Anion Gap BUN Creatinine Estimated GFR (MDRD) BUN/Creatinine Ratio Glucose Lactic Acid 0.76 Calcium Total Bilirubin AST ALT Alkaline Phosphatase Troponin I Total Protein Albumin Globulin Albumin/Globulin Ratio Amylase 210.7 H Lipase 252.5 Procalcitonin Stl Occult Blood (IFOB) Stool Occult Blood #2 Stool Occult Blood #3 09/26/18 21:03 WBC RBC Hgb Hct MCV MCH MCHC RDW Coeff of Srikanth Plt Count Immature Gran % (Auto) Neut % (Auto) Lymph % (Auto) Hopkins % (Auto) Eos % (Auto) Baso % (Auto) Immature Gran # (Auto) Neut # (Auto) Lymph # (Auto) Hopkins # (Auto) Eos # (Auto) Baso # (Auto) PT INR Sodium Potassium Chloride Carbon Dioxide Anion Gap BUN Creatinine Estimated GFR (MDRD) BUN/Creatinine Ratio Glucose Lactic Acid Calcium Total Bilirubin AST ALT Alkaline Phosphatase Troponin I Total Protein Albumin Globulin Albumin/Globulin Ratio Amylase Lipase Procalcitonin Stl Occult Blood (IFOB) Positive Stool Occult Blood #2 No specimen received Stool Occult Blood #3 No specimen received Orders Category Date Time Status EKG-(ED ONLY) Stat CARDIO 09/26/18 19:33 Completed IV [ED IV/MEDIPORT/POWERPORT] .ONCE EMERGENCY 09/26/18 22:40 Active AMYLASE Stat LAB 09/26/18 20:05 Completed BLOOD CULTURE (ED ONLY) Stat LAB 09/26/18 20:05 Received CBC W/ AUTO DIFF Stat LAB 09/26/18 20:05 Completed COMPREHENSIVE METABOLIC PANEL Stat LAB 09/26/18 20:05 Completed HEMOCCULT [OCCULT BLOOD, STOOL] Stat LAB 09/26/18 21:03 Completed LACTIC ACID Stat LAB 09/26/18 20:05 Completed LIPASE Stat LAB 09/26/18 20:05 Completed PROCALCITONIN Stat LAB 09/26/18 20:05 Completed PT WITH INR Stat LAB 09/26/18 20:05 Completed TROPONIN I Stat LAB 09/26/18 20:05 Completed 0.9 % Sodium Chloride [Saline Flush] MEDS 09/26/18 22:40 Discontinued 1 syr IVF PRN PRN Ondansetron [Zofran Odt] MEDS 09/26/18 19:25 Discontinued 4 mg PO ONCE STA Pantoprazole Sodium [Protonix IV] MEDS 09/26/18 21:15 Discontinued 40 mg IVP ONCE STA CHEST, 1V AP ONLY Stat RADS 09/26/18 19:33 Completed Medications Discontinued Medications Generic Name Dose Route Start Last Admin Trade Name Anthonyq PRN Reason Stop Dose Admin Ondansetron HCl 4 mg 09/26/18 19:25 09/26/18 19:30 Zofran Odt PO 09/26/18 19:26 4 mg ONCE STA Administration Pantoprazole Sodium 40 mg 09/26/18 21:15 09/26/18 22:35 Protonix Iv IVP 09/26/18 21:16 40 mg ONCE STA Administration Sodium Chloride 1 syr 09/26/18 22:40 Saline Flush IVF PRN PRN To flush IV Vital Signs: Temp Pulse Resp BP Pulse Ox 09/27/18 00:25 97.8 F 70 24 152/67 H 98 09/26/18 23:01 131/50 L 09/26/18 19:40 150/59 H 99 09/26/18 18:07 99.0 F 77 20 126/25 L 100 Departure - Departure Time of Disposition: 23:57 Disposition: TSF SHORT-TRM HOSP Discharge Problem: Upper GI bleeding Anemia Qualifiers: Anemia type: iron deficiency Iron deficiency anemia type: other iron deficiency Qualified Code(s): D50.8 - Other iron deficiency anemias Condition: Fair Pt referred to PMD for follow-up: Yes IPMP verified?: No Allergies/Adverse Reactions: Allergies ampicillin Adverse Reaction (Verified 09/26/18 18:12) furosemide [From Lasix] Adverse Reaction (Verified 09/26/18 18:12) gabapentin [From Neurontin] Adverse Reaction (Verified 09/26/18 18:12) hydrocodone bitartrate [From Vicodin] Adverse Reaction (Verified 09/26/18 18:12) Home Medications: Ambulatory Orders Aspirin [Aspir-Low] 81 mg PO DAILY 06/04/17 Atorvastatin Calcium [Lipitor] 20 mg PO BEDTIME 06/04/17 Levothyroxine Sodium [Synthroid] 50 mcg PO QDAC 06/04/17 Multivitamin/Iron/Folic Acid [Daily Multiple Tablet] 1 tab PO DAILY 06/04/17 Olmesartan Medoxomil [Benicar] 40 mg PO DAILY 06/04/17 Ondansetron HCl [Zofran] 4 mg PO BID PRN 06/04/17 Propafenone HCl 150 mg PO BID 06/04/17 Tramadol HCl [Ultram] 50 mg PO TID PRN 08/19/18 Pt. Stabilized Within Hospital's Capabilities/Transferred To: [facility]. Transfer Form Completed: Yes Disposition Discussed With: Patient, Family
[2018-09-26] MEDS ORDERED: PROTONIX IV IVP STA (21:15)
--- NOTE | 2018-09-26 21:18 | DI ---
Exam: Chest one-view History: Weakness, nausea vomiting FINDINGS: Cardiac silhouette is enlarged. Pulmonary vasculature is normal. The right approach dial ysis catheter with its tip at the upper right atrium level. Left approach pacemaker. The pulmonary vasculature is normal. No lung infiltrates. No acute chest wall abnormality. Impression: No acute cardiopulmonary disease.
[2018-09-27 00:38] VITALS: TEMP 97.8
[2018-09-27 06:55] VITALS: BP 152/67
== END 2018-09-27 00:45 | disposition short-term general hospital (02) ==
LOC: ED 18:05
DX: K92.0 Hematemesis (principal); D50.8 Other iron deficiency anemias; N18.9 Chronic kidney disease, unspecified; Z99.2 Dependence on renal dialysis; I10 Essential (primary) hypertension; Z79.899 Other long term (current) drug therapy; I48.91 Unspecified atrial fibrillation; E11.9 Type 2 diabetes mellitus without complications; E78.5 Hyperlipidemia, unspecified; E05.90 Thyrotoxicosis, unspecified without thyrotoxic crisis or storm; Z95.0 Presence of cardiac pacemaker; Z86.73 Personal history of transient ischemic attack (TIA), and cerebral infarction without residual deficits
CPT/HCPCS: 36415; 80053; 82150; 82272; 83605; 83690; 84145; 84484; 85025; 85610; 87040; 93005; 93010; 96374; 99284

== ENCOUNTER 2018-09-27 00:45 | Outpatient (CLI) ==
[2018-09-26 18:11] VITALS: BMI 22.1
== END 2018-09-27 01:05 | disposition short-term general hospital (02) ==
LOC: AMBL 00:45
PROVIDERS: ATTEND Internal Medicine
DX: R53.1 Weakness (principal)